=== PATIENT | male | born 1960 | race Caucasian/White ===

== ENCOUNTER 2016-11-12 13:31 | Emergency (ER) | payer OTHER ==
[~2016-11-12] VITALS: Ht 172.7 cm; Wt 86.4 kg
[2016-11-12 13:59] VITALS: BP 132/89; PULSE 81; RESP 16; O2SAT 98
--- NOTE | 2016-11-12 14:20 | ED.REPORT ---
HPI-Psychiatric Illness Date of Service Nov 12, 2016 ED Provider: Dr. Brian Drummond The patient is a 56 year old male with history of bipolar on Lamictal, who presents to the emergency department complaining of suicidal ideations. He reported to the nurse that he is feeling suicidal and would hang himself. The patient feels that he is in between a manic and depressive state. He feels that over the past few months there has been a change in his ability to function which is abnormal. He was sent home from work today due to this. He states, "I can't think, I freeze, everything mentally just disappears." The patient states his wage was decreased a few months ago and he has been going downhill since then. The patient has been hospitalized psychiatrically in the past. He has previously attempted suicide by overdose. He denies current alcohol or drug use. He smokes cigarettes. He denies any physical complaints at this time. Nursing Notes Stated Complaint: MENTAL HEALTH Chief Complaint: Psychiatric Complaint Nursing Notes Reviewed: Yes Allergies: Coded Allergies: No Known Allergies (Unverified , 11/12/16) General Time Seen by MD: 14:19 Chief Complaint Suicidal ideation Hx Obtained From: Patient Arrived By: Walk-in Onset Occurred: More than a week ago... Symptom Duration: Since onset Progression Since Onset: Constant, Gradually worsening Severity: Current: No pain currently Severity: Maximum: No pain Recent Healthcare: No recent doctor visit, No recent hospitalization Similar Sx Previous: No Risk-Psychiatric Illness Suicide Risk Stratification Suicide Risk Factors - Adult: : Previous attempt: Prior psych admissionNo: Alcohol use, Substance abuse RF Statements: Risk factors reviewed Past Medical History Past Medical History Bipolar disorder Hx of previous suicide attempt Family History Noncontributory Smoking History Current Every Day Smoker Social History Alcohol Use: In recovery Drug Use: In recovery Other Social History: Local resident Ambulatory Status Independent Review of Systems Constitutional: Denies: Chills, Fever Respiratory: Denies: Non-productive cough, Shortness of breath Cardiovascular: Denies: Chest pain GI: Denies: Diarrhea, Vomiting Skin: Denies Rash Neurologic: Denies: Headache Psychiatric: Reports: Anxiety, Change mental status, Depression, Stress, Suicidal ideation, Unable to control self Complete sys rev & neg: except as marked. Ears / Nose / Throat: Denies: Nasal congestion, Sore throat Physical Exam Initial Vital Signs Vital Signs (First) Date Time Temp Pulse Resp B/P Pulse Ox O2 Delivery O2 Flow Rate FiO2 11/12/16 13:59 36.8 81 16 132/89 98 Room Air Initial VS: Reviewed Head / Eyes: Atraumatic, Normocephalic, PERRL ENT: Mucous membranes moist, Conjunctiva normal, No scleral icterus Neck: Supple, Non-tender, Full range of motion Respiratory: Breath sounds normal, Clear to auscultation, No respiratory distress Cardiovascular: Regular rate & rhythm, Heart sounds normal, Intact distal pulses Abdomen / GI: Soft, Non-tender, No guarding, No rebound, No distention Extremities: Vascular intact, Neuro intact, No swelling, No tenderness Skin: Warm, Dry, No cyanosis General/Constitutional: Awake, Alert, Cooperative Neurologic: Oriented X3, Speech NL Abnormal Mood/Affect: Positive: Depressed, Flat affect Abnormal Thinking / Perception: Positive: Suicidal, with plan Interpretation & Diagnostics Interpretation & Diagnostics: Breathalyzer: 0 Urine drug screen: 0 Lab Results Interpretation Result Diagram: 11/12/16 1438 11/12/16 1438 Test 11/12/16 14:38 11/12/16 15:07 White Blood Count 9.7th/mm3 (3.8-10.1) Red Blood Count 5.49mil/mm3 (4.40-5.80) Hemoglobin 16.8g/dL (13.8-17.2) Hematocrit 49.5% (41.0-50.0) Mean Corpuscular Volume 90.2fL (81-100) Mean Corpuscular Hemoglobin 30.6pg (27.0-35.0) Mean Corpuscular Hemoglobin Concent 33.9% (32.0-37.0) Red Cell Distribution Width 13.0% (12.3-15.4) Platelet Count 255bil/L (150-400) Neutrophils (%) (Auto) 60.8% (40-74) Lymphocytes (%) (Auto) 26.5% (14-46) Monocytes (%) (Auto) 8.4% (4-12) Eosinophils (%) (Auto) 3.3% (0-5) Basophils (%) (Auto) 0.8% (0-3) Sodium Level 138mEq/L (134-144) Potassium Level 4.5mEq/L (3.5-5.2) Chloride Level 101mEq/L (97-108) Carbon Dioxide Level 22mmol/L (18-29) Blood Urea Nitrogen 12mg/dL (6-24) Creatinine 0.88mg/dL (0.76-1.27) Estimat Glomerular Filtration Rate 95mL/min (>59) Glucose Level 96mg/dL (60-99) Calcium Level 10.1mg/dL (8.5-10.1) Total Bilirubin 0.3mg/dL (0.0-1.2) Aspartate Amino Transf (AST/SGOT) 23U/L (0-50) Alanine Aminotransferase (ALT/SGPT) 17U/L (0-44) Alkaline Phosphatase 77U/L (25-150) Total Protein 7.6g/dL (6.4-8.4) Albumin 4.5g/dL (3.4-5.0) Thyroid Stimulating Hormone (TSH) 1.440uIU/mL (0.450-4.500) Hold Ramos Top Tube Received (Received) Hold Urine Received (Received) Re-Eval/Medical Decision Consultation : 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 Counseled Regarding: Diagnosis, Lab results Discharge & Departure Shift Change Sign-Out Patient Care Transferred: Yes Discussed Complaint(s): Yes Laboratory Evaluation: Lab evaluation discussed Response to Therapy: Improved Additonal Information: Dr. Woods Impression: Primary Impression: Suicidal ideations Discharge Condition All VS Reviewed: Yes Condition: Stable Care Transferred to: Dr. Woods Care Transferred at: 18:00 Kira Attestation Portions of this note were transcribed by Tresa Murphy and Aysha Agudelo. I, Dr. Drummond personally performed the history, physical exam and medical decision-making; I reviewed and confirmed the accuracy of the information in the transcribed note. Signed by: Kira Waters, 11/12/2016 at 1800. a 34 year old male with a history of schizophrenia, PTSD, anxiety, suicide attempt, and self mutilation Brian Drummond MD Nov 12, 2016 14:20 Tresa Murphy Nov 12, 2016 14:27 AYSHA AGUDELO Nov 12, 2016 18:01
[2016-11-12 14:55] LABS: BASOPHILS % (AUTO) 0.8 % (0-3); EOSINOPHILS % (AUTO) 3.3 % (0-5); MONOCYTES % (AUTO) 8.4 % (4-12); Mean Corpuscular Hemoglobin 30.6 pg (27.0-35.0); Mean Corpuscular Volume 90.2 fL (81-100); NEUTROPHILS % (AUTO) 60.8 % (40-74); Platelet Count 255 bil/L (150-400)
[2016-11-12 19:05] VITALS: BP 128/92; PULSE 78; RESP 16; O2SAT 97
[2016-11-12 22:01] VITALS: BP 125/81; PULSE 81; RESP 14; O2SAT 97
[2016-11-13 06:41] VITALS: BP 128/81; PULSE 77; RESP 16; O2SAT 97
[2016-11-13] MEDS ORDERED: LAMO25TA (09:14)
[2016-11-13] MEDS ORDERED: lamoTRIgine 25 mg Tablet PO ONE (09:25)
[2016-11-13 10:43] VITALS: BP 123/82; PULSE 76; RESP 16; O2SAT 95
[2016-11-13] MEDS ORDERED: LORazepam 1 mg Tablet PO ONE (15:30)
[2016-11-13 15:48] VITALS: BP 132/77; PULSE 65; RESP 16; O2SAT 97
[2016-11-13 20:13] VITALS: BP 130/72; PULSE 60; RESP 16; O2SAT 99
== END 2016-11-13 20:14 | disposition other institution (70) ==
LOC: SED 13:31
DX: R45.851 Suicidal ideations (principal); F31.9 Bipolar disorder, unspecified; F17.200 Nicotine dependence, unspecified, uncomplicated; Z91.5 Personal history of self-harm